=== PATIENT | male | born 1945 | race Caucasian/White ===

== ENCOUNTER 2019-09-30 07:25 | Inpatient (IN) | payer MEDICARE ==
[2019-09-30] MEDS ORDERED: ACETAMINOPHEN TAB 500 MG TAB PO STA (07:32)
[2019-09-30] MEDS ORDERED: IBUPROFEN 600 MG TAB PO STA (07:32)
--- NOTE | 2019-09-30 07:44 | ED ---
General Adult HPI - General Chief complaint: Fever Stated complaint: Fever Time Seen by Provider: 09/30/19 07:25 Source: EMS, RN notes reviewed, old records reviewed Mode of arrival: EMS Limitations: no limitations - History of Present Illness Initial comments: This is a 74-year-old male who presents emergency Department stating he woke up this morning about 6:30 in felt like he had a fever. Patient states he had a dry cough but no sputum production. Patient denied any shortness of breath or difficulty breathing. Patient states he thinks is having a panic attack earlier and when he coughed he was having some chest pain in his ribs bilaterally. Patient denies any nausea vomiting diarrhea. Patient denies any rashes or areas of redness or lesions. Patient denies any dysuria hematuria urinary frequency. Patient denies any headache. Patient denies any lightheadedness or dizziness. Patient states yesterday he felt fine. Patient denies having gotten a flu shot. - Related Data Home Medications Medication Instructions Recorded Confirmed Acetaminophen Tab [Tylenol Tab] 1,000 mg PO Q6HR PRN 09/30/19 09/30/19 Timolol 0.5% Ophth Soln [Timoptic 1 drop BOTH EYES DAILY 09/30/19 09/30/19 0.5% Ophth Soln] Allergies Allergy/AdvReac Type Severity Reaction Status Date / Time No Known Allergies Allergy Verified 09/30/19 08:50 Review of Systems ROS Statement: Those systems with pertinent positive or pertinent negative responses have been documented in the HPI. ROS Other: All systems not noted in ROS Statement are negative. Past Medical History Past Medical History: Eye Disorder History of Any Multi-Drug Resistant Organisms: None Reported Additional Past Surgical History / Comment(s): cataract surgery Past Psychological History: No Psychological Hx Reported Smoking Status: Former smoker Past Alcohol Use History: None Reported Past Drug Use History: None Reported General Exam - General Exam Comments Initial Comments: GENERAL: Patient is well-developed and well-nourished. Patient is nontoxic and well- hydrated and is in mild distress. ENT: Neck is soft and supple. No significant lymphadenopathy is noted. Oropharynx is clear. Moist mucous membranes. Neck has full range of motion without eliciting any pain. EYES: The sclera were anicteric and conjunctiva were pink and moist. Extraocular movements were intact and pupils were equal round and reactive to light. Eyelids were unremarkable. PULMONARY: Unlabored respirations. Good breath sounds bilaterally. No audible rales rhonchi or wheezing was noted. CARDIOVASCULAR: There is a regular rate and rhythm without any murmurs gallops or rubs. ABDOMEN: Soft and nontender with normal bowel sounds. SKIN: Skin is clear with no lesions or rashes and otherwise unremarkable. NEUROLOGIC: Patient is alert and oriented x3. Cranial nerves II through XII are grossly intact. Motor and sensory are also intact. Normal speech, volume and content. Symmetrical smile. MUSCULOSKELETAL: Normal extremities with adequate strength and full range of motion. No lower e xtremity swelling or edema. No calf tenderness. LYMPHATICS: No significant lymphadenopathy is noted PSYCHIATRIC: Normal psychiatric evaluation. Limitations: no limitations Course Vital Signs 09/30/19 09/30/19 07:27 08:00 Temperature 103.1 F H Pulse Rate 102 H 82 Respiratory 21 18 Rate Blood Pressure 144/85 129/72 O2 Sat by Pulse 95 94 L Oximetry Medical Decision Making - Medical Decision Making EKG shows a normal sinus rhythm at 90 bpm OR interval is on a 46 QRS is 90 QT interval 350 QTC is 428 per patient's EKG shows no ST segment elevation or depression or T wave abnormalities are noted. Chest x-ray shows no acute abnormality. Patient has urinary tract infection and so I started the patient on Rocephin. I spoke with Dr. Mantilla and he agreed to admit the patient admitted the patient wrote admitting orders. Patient's troponin was mildly elevated so I repeated the troponin and consult to cardiology - Lab Data Result diagrams: 09/30/19 07:52 09/30/19 07:52 Lab Results 09/30/19 09/30/19 09/30/19 Range/Units 07:52 07:52 07:52 WBC 10.5 (3.8-10.6) k/uL RBC 5.21 (4.30-5.90) m/uL Hgb 15.0 (13.0-17.5) gm/dL Hct 45.1 (39.0-53.0) % MCV 86.5 (80.0-100.0) fL MCH 28.8 (25.0-35.0) pg MCHC 33.3 (31.0-37.0) g/dL RDW 12.5 (11.5-15.5) % Plt Count 148 L (150-450) k/uL Neutrophils % 95 % Lymphocytes % 2 % Monocytes % 1 % Eosinophils % 1 % Basophils % 1 % Neutrophils # 10.0 H (1.3-7.7) k/uL Lymphocytes # 0.2 L (1.0-4.8) k/uL Monocytes # 0.1 (0-1.0) k/uL Eosinophils # 0.1 (0-0.7) k/uL Basophils # 0.1 (0-0.2) k/uL PT (9.0-12.0) sec INR (<1.2) APTT (22.0-30.0) sec Sodium 137 (137-145) mmol/L Potassium 4.1 (3.5-5.1) mmol/L Chloride 106 (98-107) mmol/L Carbon Dioxide 22 (22-30) mmol/L Anion Gap 9 mmol/L BUN 15 (9-20) mg/dL Creatinine 1.01 (0.66-1.25) mg/dL Est GFR (CKD-EPI)AfAm 84 (>60 ml/min/1.73 sqM) Est GFR (CKD-EPI)NonAf 73 (>60 ml/min/1.73 sqM) Glucose 127 H (74-99) mg/dL Plasma Lactic Acid Kurtis 3.0 H* (0.7-2.0) mmol/L Calcium 9.2 (8.4-10.2) mg/dL Total Bilirubin 2.8 H (0.2-1.3) mg/dL AST 34 (17-59) U/L ALT 23 (4-49) U/L Alkaline Phosphatase 82 (38-126) U/L Troponin I (0.000-0.034) ng/mL Total Protein 6.8 (6.3-8.2) g/dL Albumin 3.9 (3.5-5.0) g/dL Urine Color Urine Appearance (Clear) Urine pH (5.0-8.0) Ur Specific Beaver (1.001-1.035) Urine Protein (Negative) Urine Glucose (UA) (Negative) Urine Ketones (Negative) Urine Blood (Negative) Urine Nitrite (Negative) Urine Bilirubin (Negative) Urine Urobilinogen (<2.0) mg/dL Ur Leukocyte Esterase (Negative) Urine RBC (0-5) /hpf Urine WBC (0-5) /hpf Urine WBC Clumps (None) /hpf Ur Squamous Epith Cells (0-4) /hpf Amorphous Sediment (None) /hpf Urine Bacteria (None) /hpf Urine Mucus (None) /hpf Influenza Type A RNA (Not Detectd) Influenza Type B (PCR) (Not Detectd) 09/30/19 09/30/19 09/30/19 Range/Units 07:52 07:52 07:52 WBC (3.8-10.6) k/uL RBC (4.30-5.90) m/uL Hgb (13.0-17.5) gm/dL Hct (39.0-53.0) % MCV (80.0-100.0) fL MCH (25.0-35.0) pg MCHC (31.0-37.0) g/dL RDW (11.5-15.5) % Plt Count (150-450) k/uL Neutrophils % % Lymphocytes % % Monocytes % % Eosinophils % % Basophils % % Neutrophils # (1.3-7.7) k/uL Lymphocytes # (1.0-4.8) k/uL Monocytes # (0-1.0) k/uL Eosinophils # (0-0.7) k/uL Basophils # (0-0.2) k/uL PT 11.1 (9.0-12.0) sec INR 1.1 (<1.2) APTT 23.6 (22.0-30.0) sec Sodium (137-145) mmol/L Potassium (3.5-5.1) mmol/L Chloride (98-107) mmol/L Carbon Dioxide (22-30) mmol/L Anion Gap mmol/L BUN (9-20) mg/dL Creatinine (0.66-1.25) mg/dL Est GFR (CKD-EPI)AfAm (>60 ml/min/1.73 sqM) Est GFR (CKD-EPI)NonAf (>60 ml/min/1.73 sqM) Glucose (74-99) mg/dL Plasma Lactic Acid Kurtis (0.7-2.0) mmol/L Calcium (8.4-10.2) mg/dL Total Bilirubin (0.2-1.3) mg/dL AST (17-59) U/L ALT (4-49) U/L Alkaline Phosphatase (38-126) U/L Troponin I (0.000-0.034) ng/mL Total Protein (6.3-8.2) g/dL Albumin (3.5-5.0) g/dL Urine Color Yellow Urine Appearance Cloudy (Clear) Urine pH 5.0 (5.0-8.0) Ur Specific Beaver 1.013 (1.001-1.035) Urine Protein Trace H (Negative) Urine Glucose (UA) Negative (Negative) Urine Ketones Negative (Negative) Urine Blood Small H (Negative) Urine Nitrite Positive (Negative) Urine Bilirubin Negative (Negative) Urine Urobilinogen <2.0 (<2.0) mg/dL Ur Leukocyte Esterase Large H (Negative) Urine RBC 14 H (0-5) /hpf Urine WBC >182 H (0-5) /hpf Urine WBC Clumps Few H (None) /hpf Ur Squamous Epith Cells <1 (0-4) /hpf Amorphous Sediment Rare H (None) /hpf Urine Bacteria Many H (None) /hpf Urine Mucus Occasional H (None) /hpf Influenza Type A RNA Not Detected (Not Detectd) Influenza Type B (PCR) Not Detected (Not Detectd) 09/30/19 Range/Units 07:52 WBC (3.8-10.6) k/uL RBC (4.30-5.90) m/uL Hgb (13.0-17.5) gm/dL Hct (39.0-53.0) % MCV (80.0-100.0) fL MCH (25.0-35.0) pg MCHC (31.0-37.0) g/dL RDW (11.5-15.5) % Plt Count (150-450) k/uL Neutrophils % % Lymphocytes % % Monocytes % % Eosinophils % % Basophils % % Neutrophils # (1.3-7.7) k/uL Lymphocytes # (1.0-4.8) k/uL Monocytes # (0-1.0) k/uL Eosinophils # (0-0.7) k/uL Basophils # (0-0.2) k/uL PT (9.0-12.0) sec INR (<1.2) APTT (22.0-30.0) sec Sodium (137-145) mmol/L Potassium (3.5-5.1) mmol/L Chloride (98-107) mmol/L Carbon Dioxide (22-30) mmol/L Anion Gap mmol/L BUN (9-20) mg/dL Creatinine (0.66-1.25) mg/dL Est GFR (CKD-EPI)AfAm (>60 ml/min/1.73 sqM) Est GFR (CKD-EPI)NonAf (>60 ml/min/1.73 sqM) Glucose (74-99) mg/dL Plasma Lactic Acid Kurtis (0.7-2.0) mmol/L Calcium (8.4-10.2) mg/dL Total Bilirubin (0.2-1.3) mg/dL AST (17-59) U/L ALT (4-49) U/L Alkaline Phosphatase (38-126) U/L Troponin I 0.054 H* (0.000-0.034) ng/mL Total Protein (6.3-8.2) g/dL Albumin (3.5-5.0) g/dL Urine Color Urine Appearance (Clear) Urine pH (5.0-8.0) Ur Specific Beaver (1.001-1.035) Urine Protein (Negative) Urine Glucose (UA) (Negative) Urine Ketones (Negative) Urine Blood (Negative) Urine Nitrite (Negative) Urine Bilirubin (Negative) Urine Urobilinogen (<2.0) mg/dL Ur Leukocyte Esterase (Negative) Urine RBC (0-5) /hpf Urine WBC (0-5) /hpf Urine WBC Clumps (None) /hpf Ur Squamous Epith Cells (0-4) /hpf Amorphous Sediment (None) /hpf Urine Bacteria (None) /hpf Urine Mucus (None) /hpf Influenza Type A RNA (Not Detectd) Influenza Type B (PCR) (Not Detectd) Disposition Clinical Impression: Urinary tract infection, Sepsis, Chest pain Disposition: ADMITTED IP TO THIS HOSP Referrals: None,Stated [Primary Care Provider] - 1-2 days Time of Disposition: 09:25
[2019-09-30] MEDS: SODIUM CHLORIDE 0.9% 500 ML 500 ML IV SCH (07:57)
[2019-09-30 08:11] LABS: Basophils # (A) 0.1 k/uL (0-0.2); Basophils % (A) 1 %; Eosinophils # (A) 0.1 k/uL (0-0.7); Eosinophils % (A) 1 %; HCT 45.1 % (39.0-53.0); Lymphocytes # (A) 0.2 k/uL (1.0-4.8); Lymphocytes % (A) 2 %; MCH 28.8 pg (25.0-35.0); MCHC 33.3 g/dL (31.0-37.0); MCV 86.5 fL (80.0-100.0); Mean Platelet Volume 6.9; Monocytes # (A) 0.1 k/uL (0-1.0); Monocytes % (A) 1 %; Neutrophils % (A) 95 %; Platelet Count 148 k/uL (150-450); RBC 5.21 m/uL (4.30-5.90); RDW 12.5 % (11.5-15.5); WBC 10.5 k/uL (3.8-10.6)
[2019-09-30 08:14] LABS: Albumin 3.9 g/dL (3.5-5.0); Calcium 9.2 mg/dL (8.4-10.2); Potassium 4.1 mmol/L (3.5-5.1); Total Bilirubin 2.8 mg/dL (0.2-1.3); Total Protein 6.8 g/dL (6.3-8.2)
[2019-09-30 08:15] LABS: Amorphous Sediment,Urine Rare /hpf; Appearance,Urine Cloudy (Clear); Bacteria,Urine Many /hpf; Bilirubin,Urine Negative (Negative); Blood,Urine Small (Negative); Color,Urine Yellow; Glucose,Urine (UA) Negative (Negative); Ketones,Urine Negative (Negative); Leukocyte Esterase,Urine Large (Negative); Mucus,Urine Occasional /hpf; Nitrite,Urine Positive (Negative); Protein,Urine Trace (Negative); RBC,Urine 14 /hpf (0-5); Specific Gravity,Urine 1.013 (1.001-1.035); Squamous Epithelial Cell,Urine <1 /hpf (0-4); Urobilinogen,Urine <2.0 mg/dL (<2.0); WBC,Urine >182 /hpf (0-5)
--- NOTE | 2019-09-30 08:15 | XR ---
EXAMINATION TYPE: XR chest 2V DATE OF EXAM: 09/30/2019 COMPARISON: NONE HISTORY: Shortness of breath TECHNIQUE: Frontal and lateral views of the chest are obtained. FINDINGS: Scattered senescent parenchymal changes noted. Hyperinflation compatible with COPD. No evidence for infiltrate. No evidence for atelectasis. Heart size is stable. Mediastinal structures are stable and grossly unremarkable. No evidence for hilar prominence. Degenerative changes dorsal spine. IMPRESSION: 1. No evidence for acute pulmonary disease.
[2019-09-30 08:31] LABS: INR 1.1 (<1.2); Partial Thromboplastin Time 23.6 sec (22.0-30.0); Prothrombin Time 11.1 sec (9.0-12.0)
[2019-09-30] MEDS ORDERED: cefTRIAXone IN SWFI 1,000 MG/10 ML SYRINGE IVP STA (08:52)
[2019-09-30] MEDS ORDERED: SODIUM CHLORIDE 0.9% 1,000 ML IV ONE (09:25)
[2019-09-30] MEDS ORDERED: ACETAMINOPHEN TAB 325 MG TAB PO PRN (14:35)
[2019-09-30] MEDS ORDERED: LEVOFLOXACIN 500 MG TAB PO SCH (20:00)
--- NOTE | 2019-09-30 20:16 | CONS ---
CONSULTATION CHIEF COMPLAINT: Elevated troponin. HISTORY OF PRESENT ILLNESS: This is a 74-year-old gentleman with no significant past medical history who presented to hospital complaining of fever, chills and not feeling well that started early this morning. He has a dry cough, but does not have any shortness of breath or productive sputum. At the time of my evaluation, he appears comfortable at rest and is free of symptoms. His EKG showed normal sinus rhythm and is within normal limits. Cardiac enzymes came back elevated at 0.054. Hemoglobin is normal at 15 and white cell count is normal. There is no prior history of coronary artery disease or congestive heart failure. SOCIAL HISTORY: Negative for smoking. PAST MEDICAL HISTORY: Significant for glaucoma. MEDICATIONS: Include Timoptic. ALLERGIES: There are no known drug allergies. FAMILY HISTORY: Negative for premature coronary artery disease. REVIEW OF SYSTEMS: HEENT is unremarkable. CARDIAC as described above. RESPIRATORY as described above. GI negative. ENT negative. ALLERGY/IMMUNOLOGY: Negative. SKIN: Negative. MUSCULOSKELETAL: Negative. ENDOCRINE: Negative. DERM: Negative. CONSTITUTIONAL significant for febrile illness. Rest of the system review is not relevant. His UA shows that the leukocyte esterase is positive. White cell count is elevated. Influenza is negative. ASSESSMENT: 1. Elevated troponin probably related to the febrile illness. 2. Urinary tract infection. PLAN: Treat the patient with antibiotics. I will obtain 1 more sets of troponin. Obtain a 2D echo to evaluate his LV function and wall motion. I believe the troponin elevation is related to sepsis. This is not a myocardial infarction. If there is no significant troponin elevation, the patient on discharge will follow up with me and have an outpatient stress test. URSULA / KAREN: [id number] /
--- NOTE | 2019-09-30 22:24 | HP ---
HISTORY AND PHYSICAL CHIEF COMPLAINT: Fever, chills, and chest pain. HISTORY OF PRESENT ILLNESS: This is the first known admission for this 74-year-old white male. He came to emergency room with chills and fever and was found to have urinary tract infection. He was negative for the flu. However, his troponin was elevated. He had no other symptoms including dysuria, hematuria, incontinence, cough, fever, chills, coryza, chest pain, diaphoresis, etc. REVIEW OF SYSTEMS: Otherwise unremarkable. Past medical history, family history, personal and social histories reveal that he has not had a history of diabetes, hypertension, heart disease. Not allergic to any medication. He has he uses eyedrops for glaucoma. He does not smoke. LABORATORY DATA: Laboratory studies demonstrated a positive urinary tract infection on UA, elevated troponin and a lactic acid of 3. PHYSICAL EXAMINATION: Blood pressure is 146/74 with a pulse of 88, respirations of 35, and he is afebrile. At this time, in general he appeared to be slender, well developed, well nourished, no acute distress. Skin color is normal. Skin is warm, dry. Lymph nodes not enlarged. Head, ears, eyes, nose, mouth, and throat were normal. Neck veins are not distended. Thyroid is not enlarged. Chest is clear. Cardiac exam demonstrated normal sinus rhythm and no murmurs or extra sounds. Abdomen is soft and nontender without any visceromegaly or masses. Bowel sounds are present. Extremities are normal. Neurologically was intact. IMPRESSION: 1. Hyperpyrexia. 2. Urinary tract infection. 3. Elevated troponin. 4. Glaucoma. PLAN: 1. Bed rest. 2. IV fluids. 3. Antibiotics. 4. Troponins, repeat troponin. 5. Cardiology consult. MMODL / IJN: [id number] /
--- NOTE | 2019-10-01 12:53 | PN ---
PROGRESS NOTE CHIEF COMPLAINT: Urinary tract infection and sepsis with chest pain and elevated troponin. HISTORY OF PRESENT ILLNESS: This gentleman is doing better and temperature has been down. PHYSICAL EXAMINATION: Chest is clear. Cardiac exam is normal. Abdomen is soft and nontender. IMPRESSION: 1. Urinary tract infection with sepsis. 2. Elevated troponin. PLAN: Continue with IV fluids and IV antibiotics. MMODL / IJN: [id number] /
--- NOTE | 2019-10-01 14:44 | PN ---
PROGRESS NOTE DATE OF SERVICE: 10/01/2019 The lab called back that he had a positive blood culture for E coli, and he will be switched from Levaquin to Zosyn. URSULA / RENAN: [id number] /
--- NOTE | 2019-10-01 16:23 | P.PN ---
Subjective Progress Note Date: 10/01/19 his is a 74-year-old gentleman who was admitted to the hospital with fever or chills. We're asked to see the patient because of abnormal troponin value. Second troponin values showed further elevation of the troponin. Patient was also having some atypical chest pain. Since admission patient is documented to have E. coli bacteremia. Is being treated for sepsis. His troponin value could be related to sepsis. Echocardiogram is not done yet. If echo shows normal LV function. We'll continue to monitor him for any recurrence of symptoms. Patient may need further evaluation by stress test to rule out underlying ischemic heart disease. If echo shows any wall motion abnormalities, we'll may consider further evaluation as an inpatient. Patient seemed much more comfortable today Objective - Vital Signs Vital signs: Vital Signs Temp 97.2 F L 10/01/19 15:20 Pulse 53 L 10/01/19 15:20 Resp 16 10/01/19 15:20 BP 133/79 10/01/19 15:20 Pulse Ox 99 10/01/19 15:20 Intake & Output 09/30/19 10/01/19 10/01/19 18:59 06:59 18:59 Intake Total 240 1060 720 Balance 240 1060 720 Weight 89.811 kg 88.6 kg Intake: Intake, IV Titration 700 Amount Sodium Chloride 0.9% 1, 700 000 ml @ 100 mls/hr IV . Q10H ONE Rx#:[id number] Oral 240 360 720 Other: Voiding Method Urinal Urinal Urinal # Voids 1 1 2 - Exam GENERAL EXAM: Patient is alert and oriented and doesn't appear to be in any acute distress HEENT: Normocephalic. Normal reaction of pupils, equal size, normal range of extraocular motion. No erythema or exudates in the throat. NECK: No masses, no nuchal rigidity. CHEST: No chest wall deformity. LUNGS: Equal air entry with no crackles or wheeze. HEART: S1 and S2 normal with no audible mumurs or gallops. Regular rhythm, femorals equal on both sides.. ABDOMEN: No hepatosplenomegaly, normal bowel sounds, no guarding or rigidity. SKIN: No rashes CENTRAL NERVOUS SYSTEM: No focal deficits. EXTREMITIES: No cyanosis, clubbing or edema. - Labs CBC & Chem 7: 09/30/19 07:52 09/30/19 07:52 Labs: Abnormal Lab Results - Last 24 Hours (Table) 09/30/19 Range/Units 18:09 Troponin I 0.166 H* (0.000-0.034) ng/mL Microbiology - Last 24 Hours (Table) 09/30/19 07:52 Urine Culture - Final Urine,Voided 09/30/19 07:52 Blood Culture Gram Stain - Preliminary Blood Blood Culture - Preliminary Escherichia coli 09/30/19 07:52 Blood Culture - Final Blood Assessment and Plan (1) Chest pain Current Visit: Yes Status: Acute Code(s): R07.9 - CHEST PAIN, UNSPECIFIED SNOMED Code(s): 41471078 (2) Sepsis Current Visit: Yes Status: Acute Code(s): A41.9 - SEPSIS, UNSPECIFIED ORGANISM SNOMED Code(s): 54800424 (3) Urinary tract infection Current Visit: Yes Status: Acute Code(s): N39.0 - URINARY TRACT INFECTION, SITE NOT SPECIFIED SNOMED Code(s): 47616418 (4) Elevated troponin Current Visit: Yes Status: Acute Code(s): R79.89 - OTHER SPECIFIED ABNORMAL FINDINGS OF BLOOD CHEMISTRY SNOMED Code(s): 187677972 Plan: Continue current medical therapy. Patient to have echocardiogram. If echo shows normal LV function, patient could be considered for outpatient evaluation to rule out underlying ischemic heart disease. If anyone most abnormal areas are noted, may consider inpatient evaluation. Meanwhile continue treatment for sepsis and UTI
[2019-10-01] MEDS: PIPERACILLIN-TAZOBACTAM 3.375 GM in SODIUM CHLORIDE 0.9% 100 ML IVPB SCH ×2 (16:56→23:51)
--- NOTE | 2019-10-02 08:38 | ECHOF ---
Referral Reason:Chest pain and cardiomyopathy MEASUREMENTS -------- HEIGHT: 180.3 cm WEIGHT: 88.5 kg BP: RVIDd: 3.7 cm (< 3.3) IVSd: 1.5 cm (0.6 - 1.1) LVIDd: 2.7 cm (3.9 - 5.3) LVPWd: 1.7 cm (0.6 - 1.1) IVSs: 1.8 cm LVIDs: 2.0 cm LVPWs: 1.9 cm LAESV Index (A-L): 37.64 ml/m Ao Diam: 3.5 cm (2.0 - 3.7) AV Cusp: 1.9 cm (1.5 - 2.6) MV E Marquez: 0.94 m/s MV DecT: 360 ms MV A Marquez: 0.94 m/s MV E/A Ratio: 1.01 RAP: 5.00 mmHg RVSP: 36.48 mmHg FINDINGS -------- Sinus rhythm. This was a technically adequate study. The left ventricular size is normal. There is moderate concentric left ventricular hypertrophy. O verall left ventricular systolic function is normal with, an EF between 55 - 60 %. Mitral Doppler i nflow pattern suggests diastolic filling abnormality 11.85. The right ventricle is mild to moderately enlarged. LA is moderately dilated 34-39 ml/m2 The right atrium is mildly enlarged. Interatrial and interventricular septum intact. The aortic valve is trileaflet and appears structurally normal. Trace amount of aortic regurgitatio n. There is no evidence of aortic stenosis. [id number] mitral regurgitation is present. Mild tricuspid regurgitation present. There is mild pulmonary hypertension. The right ventricular systolic pressure, as measured by Doppler, is 36.48mmHg. Trace/mild (physiologic) pulmonic regurgitation. The aortic root size is normal. The inferior vena cava is mildly dilated. There is no pericardial effusion. CONCLUSIONS -------- 1. Sinus rhythm. 2. This was a technically adequate study. 3. The left ventricular size is normal. 4. There is moderate concentric left ventricular hypertrophy. 5. Overall left ventricular systolic function is normal with, an EF between 55 - 60 %. 6. Mitral Doppler inflow pattern suggest diastolic filling abnormality 11.85. 7. The right ventricle is mild to moderately enlarged. 8. LA is moderately dilated 34-39 ml/m2 9. The right atrium is mildly enlarged. 10. Interatrial and interventricular septum intact. 11. The aortic valve is trileaflet and appears structurally normal. 12. Trace amount of aortic regurgitation. 13. There is no evidence of aortic stenosis. 14. [id number] mitral regurgitation is present. 15. Mild tricuspid regurgitation present. 16. There is mild pulmonary hypertension. 17. The right ventricular systolic pressure, as measured by Doppler, is 36.48mmHg. 18. Trace/mild (physiologic) pulmonic regurgitation. 19. The aortic root size is normal. 20. The inferior vena cava is mildly dilated. 21. There is no pericardial effusion. AUDIOVISUAL PRODUCTION SPECIALIST: Kizzy Hall RDCS
[2019-10-02] MEDS: PIPERACILLIN-TAZOBACTAM 3.375 GM in SODIUM CHLORIDE 0.9% 100 ML IVPB SCH ×2 (10:04→17:09)
--- NOTE | 2019-10-02 23:40 | PN ---
PROGRESS NOTE CHIEF COMPLAINT: Sepsis, urinary tract infection and chest pain with elevated troponin. HISTORY OF PRESENT ILLNESS: This gentleman is feeling well and doing well. His temperature has been down and he is on antibiotics. He has been seen by Cardiology and an echocardiogram has been ordered. He is having no chest pain, shortness of breath, etc. PHYSICAL EXAMINATION: Color is good. Chest is clear. Cardiac exam is normal. Abdomen is soft, nontender. IMPRESSION: 1. Septicemia. 2. Urinary tract infection. 3. Elevated troponin. PLAN: Continue with IV fluids and antibiotics and await the rest of his cardiac studies. MMODL / IJN: [id number] /
[2019-10-03] MEDS: PIPERACILLIN-TAZOBACTAM 3.375 GM in SODIUM CHLORIDE 0.9% 100 ML IVPB SCH ×2 (01:02→09:02)
[2019-10-03] MEDS ORDERED: TIMOLOL 0.5% OPHTH DROPS 5 ML BTL BOTH EYES SCH (09:00)
[2019-10-03 09:45] VITALS: RESP 20; TEMP 97.6
[2019-10-03] MEDS ORDERED: LEVOFLOXACIN 500 MG TAB PO SCH (13:00)
[2019-10-03 13:17] VITALS: BP 140/83; PULSE 48
--- NOTE | 2019-10-04 05:27 | DS ---
DISCHARGE SUMMARY CHIEF COMPLAINT: Fever, urinary tract infection and elevated troponin. HISTORY OF PRESENT ILLNESS AND PHYSICAL EXAM: Details of this man's history and physical can be found in the initial workup. LABORATORY STUDIES: While he was in the hospital he has laboratory studies, details which can be found in the laboratory section of his chart. COURSE IN THE HOSPITAL: After admission, he was placed on bedrest, started on intravenous fluids and IV antibiotics. He was seen by Cardiology. No intervention was felt necessary as they felt he could be discharged on and he will go home on his usual activity, diet, medications, and he will be sent home on Levaquin 500 mg once a today. He will follow up with us or his own personal physician and also Cardiology. FINAL DIAGNOSES: 1. Septicemia. 2. Urinary tract infection. 3. Elevated troponin. OPERATIONS: None. CONSULTATION: Cardiology. He is improved. URSULA / KAREN: [id number] /
== END 2019-10-03 14:20 | disposition home or self-care (01) | DRG 872 ==
LOC: EC 07:25 → 3SCARD 09:25
PROVIDERS: ADMIT Family Medicine; ATTEND Family Medicine
DX: A41.51 Sepsis due to Escherichia coli [E. coli] (principal); N39.0 Urinary tract infection, site not specified; E87.2 Acidosis; F41.0 Panic disorder [episodic paroxysmal anxiety]; H40.9 Unspecified glaucoma; Z87.891 Personal history of nicotine dependence; R79.89 Other specified abnormal findings of blood chemistry; Z98.49 Cataract extraction status, unspecified eye
CPT/HCPCS: 36415; 71046; 80053; 81001; 83605; 84484; 85025; 85610; 85730; 87040; 87077; 87086; 87186; 87502; 93005; 93306; 96361; 96374; 99285

== ENCOUNTER 2020-12-15 08:40 | Day surgery (SDC) | payer MEDICARE ==
[2020-12-12 15:45] VITALS: BMI 27.4
[~2020-12-15 08:40] MED LIST: ACETAMINOPHEN TAB 500 MG TAB PO PRN; DEXAMETHASONE SOD PHOSPHATE 4 MG/ML 1 ML VIAL IV ONE; HEPARIN SODIUM,PORCINE/PF 5,000 UNIT/0.5 ML SYRINGE SQ PRN; HYDROmorphone 0.5 MG/0.5 ML SYRINGE IVP PRN; LACTATED RINGERS 1,000 ML IV SCH; MIDAZOLAM 2 MG/2 ML VIAL IV PRN; ONDANSETRON 4 MG/2 ML VIAL IVP ONE
[2020-12-15] MEDS ORDERED: LIDOCAINE 1% INJ 10MG/ML (20 ML MDV) ONE (10:32)
[2020-12-15] MEDS ORDERED: NEOSTIGMINE 1 MG/ML 10 ML VIAL ONE (10:32)
[2020-12-15] MEDS ORDERED: PROPOFOL 10 MG/ML 20 ML VIAL IV ONE (10:32)
[2020-12-15] MEDS ORDERED: ROCURONIUM 10 MG/ML (5 ML VIAL) IV ONE (10:32)
[2020-12-15] MEDS ORDERED: ePHEDrine SULFATE/0.9% NACL/PF 50 MG/5 ML SYRINGE IV ONE (10:32)
[2020-12-15] MEDS ORDERED: SUCCINYLCHOLINE CHLORIDE 100 MG/5 ML SYR IV ONE (10:32)
[2020-12-15] MEDS ORDERED: GLYCOPYRROLATE 0.2 MG/ML 2 ML VIAL ONE (10:32)
[2020-12-15] MEDS ORDERED: fentaNYL (PF) 50 MCG/ML 2 ML AMP ONE (10:32)
[2020-12-15] MEDS ORDERED: MIDAZOLAM 2 MG/2 ML VIAL ONE (10:32)
[2020-12-15] MEDS ORDERED: BUPIVACAINE (PF) 0.25% 30 ML VIAL SQ ONE ×2 (10:41→12:08)
[2020-12-15] MEDS ORDERED: LACTATED RINGERS 1,000 ML IV ONE (12:10)
[2020-12-15 12:27] VITALS: RESP 16; TEMP 97.3
--- NOTE | 2020-12-15 12:34 | P.OP ---
Date of Procedure: 12/15/20 Procedure(s) Performed: PREOPERATIVE DIAGNOSIS: Large incarcerated right scrotal/inguinal hernia POSTOPERATIVE DIAGNOSIS: Same PROCEDURE: Incarcerated right inguinal hernia repair with mesh SURGEON: Nella EBL: Minimal ANESTHESIA: General COMPLICATIONS: None OPERATIVE PROCEDURE: Patient was placed in the operating table in the supine position and placed under general anesthesia. An oblique incision was made in the right groin. Dissection down through the subcutaneous tissues took place using electrocautery. The external oblique fascia was incised using a scalpel. This opening was lengthened using the Metzenbaum scissors. The spermatic cord was encircled with a Jean Pierre drain. The structures were identified and preserved. Careful dissection revealed an very large indirect hernia sac. This was carefully dissected back to the internal inguinal ring where it was ligated using 3 separate 0 silk stick tie sutures. A 3" x 6" ultra Pro Prolene mesh was cut to fit on the exposed fascia. This was sutured to the pubic tubercle the folding edge of the inguinal ligament and the conjoined tendon using 2-0 Nurolon sutures. A slit was created in the mesh and the mesh was wrapped around the spermatic cord and sutured back to itself. The external oblique was then reapproximated using a running 2-0 Vicryl suture. The subcutaneous tissues were reapproximated using a 3-0 Vicryl sutures. The skin was closed using 4-0 Monocryl sutures. Skin glue and sterile dressings were then applied. DISPOSITION: Stable to recovery room
[2020-12-15] MEDS ORDERED: ACETAMINOPHEN TAB 500 MG TAB PO ONE (13:23)
[2020-12-15] MEDS ORDERED: ACETAMINOPHEN TAB 500 MG TAB ONE (13:23)
[2020-12-15 13:26] VITALS: PULSE 59
[2020-12-15 13:56] VITALS: BP 142/79
[2020-12-15] MEDS ORDERED: IBUPROFEN 600 MG TAB PO SCH (15:30)
[2020-12-15] MEDS ORDERED: ACETAMINOPHEN TAB 325 MG TAB PO SCH (18:00)
== END 2020-12-15 15:13 | disposition home or self-care (01) ==
LOC: OR 08:40
PROVIDERS: ATTEND Surgery
DX: K40.30 Unilateral inguinal hernia, with obstruction, without gangrene, not specified as recurrent (principal); I10 Essential (primary) hypertension; E78.5 Hyperlipidemia, unspecified; H40.9 Unspecified glaucoma; Z20.822 Contact with and (suspected) exposure to COVID-19; Z98.49 Cataract extraction status, unspecified eye; Z87.891 Personal history of nicotine dependence; Z97.2 Presence of dental prosthetic device (complete) (partial); Z79.899 Other long term (current) drug therapy
CPT/HCPCS: 49507; 88302; 87635; C1781; J2250; J1100; J2710; J0690; J2405; J2001; J3010; J0330; J2704; J1644

== ENCOUNTER 2021-11-26 11:55 | Day surgery (SDC) | payer MEDICARE ==
[2021-11-22 15:49] VITALS: BMI 26.9
--- NOTE | 2021-11-26 11:41 | P.GSHP ---
History of Present Illness H&P Date: 11/26/21 Chief Complaint: Posterior neck cyst 76-year-old male here today for excision posterior neck cyst. Patient has had complaints of an enlarging mass there for some time. Mild pain at times. No drainage. No antibiotics. Past Medical History Past Medical History: Cancer, Eye Disorder, Hyperlipidemia, Hypertension Additional Past Medical History / Comment(s): Bilateral glaucoma, skin cancer History of Any Multi-Drug Resistant Organisms: None Reported Past Surgical History: Hernia Repair Additional Past Surgical History / Comment(s): Bilateral cataract removals/lens implants, right inguinal hernia repair November 2020 Past Anesthesia/Blood Transfusion Reactions: No Reported Reaction Additional Past Anesthesia/Blood Transfusion Reaction / Comment(s): Pt has never had general/spinal anesthesia. Smoking Status: Former smoker - Past Family History Father Additional Family Medical History / Comment(s): Ruptured hernia Mother Family Medical History: CVA/TIA Additional Family Medical History / Comment(s): "Heart problems" Medications and Allergies Home Medications Medication Instructions Recorded Confirmed Type Timolol 0.5% Ophth Soln [Timoptic 1 drop BOTH EYES DAILY 09/30/19 11/22/21 History 0.5% Ophth Soln] Pravastatin Sodium 80 mg PO HS 12/12/20 11/22/21 History amLODIPine [Norvasc] 5 mg PO HS 12/12/20 11/22/21 History Ergocalciferol [Vitamin D2 (1250 1,250 mcg PO Q30D 11/22/21 11/22/21 History Mcg = 74971 Iu)] Allergies Allergy/AdvReac Type Severity Reaction Status Date / Time No Known Allergies Allergy Verified 11/22/21 15:44 Surgical - Exam Physical exam: General: Well-developed, well-nourished HEENT: Normocephalic, sclerae nonicteric, posterior neck cystic lesion 4 cm Abdomen: Nontender, nondistended Extremities: No edema Neuro: Alert and oriented Assessment and Plan (1) Cyst of neck Narrative/Plan: 76-year-old male with symptomatic posterior neck cyst. We'll proceed with surgical excision. Risks of bleeding, infection, scarring, recurrence reviewed. He understands and wishes to proceed. Status: Acute Code(s): [id number] - SNOMED Code(s): 381881826
[~2021-11-26 11:55] MED LIST changes: +Pre Op ABX Message 1 EACH MISC MISCELLANE ONE
[2021-11-26 12:25] VITALS: TEMP 98.8
[2021-11-26] MEDS ORDERED: LIDOCAINE 1% (10MG/ML) FOR IV START INTRADERMA ONE (12:43)
[2021-11-26] MEDS ORDERED: PROPOFOL 10 MG/ML 20 ML VIAL IV ONE (13:40)
[2021-11-26] MEDS ORDERED: KETAMINE 10 MG/ML 20 ML VIAL ONE (13:40)
[2021-11-26] MEDS ORDERED: fentaNYL (PF) 50 MCG/ML 2 ML AMP ONE (13:40)
[2021-11-26] MEDS ORDERED: MIDAZOLAM 2 MG/2 ML VIAL ONE (13:40)
[2021-11-26] MEDS ORDERED: SODIUM CHLORIDE 0.9% 100 ML with ceFAZolin 2,000 MG IV ONE ×2 (13:58)
[2021-11-26] MEDS ORDERED: BUPIVACAIN-EPI 0.25%-1:200,000 30 ML VIAL SQ ONE ×2 (14:00)
[2021-11-26] MEDS ORDERED: NALOXONE 0.4 MG/ML 1 ML VIAL IV PRN (14:25)
--- NOTE | 2021-11-26 14:27 | P.OP ---
Date of Procedure: 11/26/21 Procedure(s) Performed: PREOPERATIVE DIAGNOSIS: Posterior neck sebaceous cyst POSTOPERATIVE DIAGNOSIS: Same PROCEDURE: Excision posterior neck sebaceous cyst, intermediate closure SURGEON: Nella EBL: 5 mL ANESTHESIA: Sedation and local COMPLICATIONS: None OPERATIVE PROCEDURE: Patient placed in the left decubitus position. The posterior neck was prepped and draped sterilely. Skin localized with lidocaine. Elliptical incision made overlying the palpable cyst. Subcutaneous tissues divided using sharp dissection. Cyst easily excised fully. The cyst measured 3.2 cm in diameter. Operative site was inspected. No bleeding seen. Subcutaneous tissues closed using interrupted 3-0 Vicryl sutures. Skin closed using running 4-0 Monocryl suture. Skin glue and sterile dressings applied. DISPOSITION: Stable to recovery room
[2021-11-26 15:03] VITALS: BP 134/86; PULSE 65; RESP 16
== END 2021-11-26 15:37 | disposition home or self-care (01) ==
LOC: OR 11:55
PROVIDERS: ATTEND Surgery
DX: L72.3 Sebaceous cyst (principal); I10 Essential (primary) hypertension; E78.5 Hyperlipidemia, unspecified; Z87.891 Personal history of nicotine dependence
CPT/HCPCS: 11424; 12042; J2250; J1100; J2405; J0690; J3010; J2704; 88304

== ENCOUNTER 2024-04-12 05:57 | Day surgery (SDC) | payer MEDICARE ==
[~2024-04-12 05:57] MED LIST changes: -DEXAMETHASONE SOD PHOSPHATE 4 MG/ML 1 ML VIAL IV ONE; +HEPARIN SODIUM,PORCINE 5,000 UNIT/ML 1 ML VIAL SQ PRN; -HEPARIN SODIUM,PORCINE/PF 5,000 UNIT/0.5 ML SYRINGE SQ PRN; -HYDROmorphone 0.5 MG/0.5 ML SYRINGE IVP PRN; -LACTATED RINGERS 1,000 ML IV SCH; -MIDAZOLAM 2 MG/2 ML VIAL IV PRN; -ONDANSETRON 4 MG/2 ML VIAL IVP ONE; -Pre Op ABX Message 1 EACH MISC MISCELLANE ONE
[2024-04-12] MEDS: LACTATED RINGERS 1,000 ML IV ONE ×3 (07:21→09:40)
[2024-04-12] MEDS: ACETAMINOPHEN TAB 500 MG TAB PO ONE (07:35)
[2024-04-12] MEDS: TAMSULOSIN 0.4 MG CAP.ER.24H PO ONE (07:35)
[2024-04-12] MEDS: HEPARIN SODIUM,PORCINE 5,000 UNIT/ML 1 ML VIAL SQ ONE (07:36)
[2024-04-12] MEDS ORDERED: LIDOCAINE 1% INJ 10MG/ML (20 ML MDV) ONE (07:41)
[2024-04-12] MEDS ORDERED: WATER FOR INJECTION, STERILE 10 ML VIAL IV ONE (07:41)
[2024-04-12] MEDS ORDERED: GLYCOPYRROLATE 0.2 MG/ML 2 ML VIAL ONE (07:41)
[2024-04-12] MEDS ORDERED: NEOSTIGMINE 1 MG/ML 10 ML VIAL ONE (07:41)
[2024-04-12] MEDS ORDERED: fentaNYL (PF) 50 MCG/ML 2 ML AMP ONE (07:41)
[2024-04-12] MEDS ORDERED: KETOROLAC 15 MG/ML 1 ML VIAL ONE (07:41)
[2024-04-12] MEDS ORDERED: PROPOFOL 10 MG/ML 20 ML VIAL IV ONE (07:41)
[2024-04-12] MEDS ORDERED: DEXAMETHASONE SOD PHOSPHATE 4 MG/ML 1 ML VIAL ONE (07:41)
[2024-04-12] MEDS ORDERED: SUCCINYLCHOLINE CHLORIDE 200 MG/10 ML VIAL IV ONE (07:41)
[2024-04-12] MEDS ORDERED: ONDANSETRON 4 MG/2 ML VIAL ONE (07:41)
[2024-04-12] MEDS ORDERED: ROCURONIUM 10 MG/ML (5 ML VIAL) IV ONE (07:41)
[2024-04-12] MEDS ORDERED: ePHEDrine 50 MG/ML 1 ML VIAL ONE (07:41)
[2024-04-12 10:11] VITALS: TEMP 97.4
[2024-04-12] MEDS ORDERED: HYDROmorphone 0.5 MG/0.5 ML SYRINGE IVP PRN (10:13)
[2024-04-12] MEDS ORDERED: LACTATED RINGERS 1,000 ML IV SCH (10:13)
[2024-04-12] MEDS ORDERED: LIDOCAINE 1% (10MG/ML) FOR IV START INTRADERMA PRN (10:13)
[2024-04-12] MEDS ORDERED: ONDANSETRON 4 MG/2 ML VIAL IVP ONE (10:13)
[2024-04-12] MEDS ORDERED: DEXAMETHASONE SOD PHOSPHATE 4 MG/ML 1 ML VIAL IV ONE (10:13)
[2024-04-12] MEDS ORDERED: METOCLOPRAMIDE 5 MG/ML 2 ML VIAL IVP PRN (10:13)
--- NOTE | 2024-04-12 10:25 | P.OP ---
Date of Procedure: 04/12/24 Procedure(s) Performed: PREOPERATIVE DIAGNOSIS: Recurrent incarcerated right inguinal hernia POSTOPERATIVE DIAGNOSIS: Same PROCEDURE: Open repair of recurrent incarcerated right inguinal hernia with mesh, right orchiectomy SURGEON: Dr. Carmen ANESTHESIA: General OPERATIVE PROCEDURE DETAILS: Patient was placed in the operating table in the supine position and placed under general anesthesia. An oblique incision was made in the right groin through the prior incision scar. Dissection down through the subcutaneous tissues took place using electrocautery. The external oblique fascia was incised using a scalpel. This opening was lengthened using the Metzenbaum scissors. The patient had an extremely large incarcerated hernia. I was able to carefully dissect the spermatic cord structures and the large hernia out of the scrotal space and this was brought up to the operative field. I was unable to dissect the testicular vessels away from the large hernia sac. The hernia sac was opened. This contained the cecum along with approximately 10 cm of small bowel. The bowel was loosely adherent to the hernia sac. This was able to be lysed in reduced back into the peritoneal cavity. The testicular vasculature was followed to the internal inguinal ring where it was ligated using 0 silk stick tie sutures. The hernia sac was quite large. In order to keep the bowel contents away from the internal inguinal ring I folded a portion of Gelfoam and placed this into the peritoneal cavity. This effectively kept the bowel away from our planned hernia sac closure site. The hernia sac was then closed using several #2 Ethibond stick tie sutures. The excess sac was excised. Both testicle and sac were sent to pathology. The area was inspected for bleeding none was seen. A 3 inch x 6 inch Prolene mesh was cut to fit on the exposed fascia. This was sutured to the pubic tubercle the folding edge of the inguinal ligament and the residual mesh from the previous repair. The external oblique was then reapproximated using a running 2-0 Vicryl suture. The subcutaneous tissues were reapproximated using a 3-0 Vicryl sutures. The skin was closed using 4-0 Monocryl sutures. Skin glue and sterile dressings were then applied. TYPE OF MESH USED: Flat Prolene LOCATION OF MESH: [place] FIXATION: 0 Vicryl PREOPERATIVE DISCUSSION ON SMOKING CESSASTION: Yes PREOPERATIVE DISCUSSION ON MORBID OBESITY: Yes PREOPERATIVE DISCUSSION ON APPROPRIATE USE OF NARCOTIC USE: Yes PREOPERATIVE EDUCATION: Multi Modal, Smoking Cessation and Weight Loss with BMI over 35. DISPOSITION: Stable to recovery room
[2024-04-12 11:03] VITALS: RESP 16
[2024-04-12] MEDS ORDERED: ACETAMINOPHEN TAB 325 MG TAB PO SCH (12:00)
[2024-04-12 12:19] VITALS: BP 151/83; PULSE 60
[2024-04-12] MEDS ORDERED: IBUPROFEN 600 MG TAB PO SCH (13:00)
== END 2024-04-12 12:35 | disposition home or self-care (01) ==
LOC: OR 05:57
PROVIDERS: ATTEND Surgery
DX: K40.31 Unilateral inguinal hernia, with obstruction, without gangrene, recurrent
CPT/HCPCS: 88302

== ENCOUNTER → 2024-06-08 | Outpatient (CLI) | payer MEDICARE ==
[2024-06-08 15:57] LABS: HCT 40.9 % (39.6-50.0); HGB 13.6 g/dL (13.0-17.0); MCH 29.5 pg (27.0-32.0); MCHC 33.3 g/dL (32.0-37.0); MCV 88.7 FL (80.0-97.0); Mean Platelet Volume 9.4 FL (9.5-12.2); NRBC Per 100 WBC 0 X 10*3/uL (0.00-0.01); Platelet Count 246 X 10*3/uL (140-440); RBC 4.61 X 10*6/uL (4.40-5.60); RDW 12.1 % (11.5-14.5); WBC 7.32 X 10*3/uL (4.50-10.00)
[2024-06-08 15:58] LABS: Basophils # (A) 0.03 X 10*3/uL (0.00-0.10); Basophils % (A) 0.4 %; Eosinophils # (A) 0.39 X 10*3/uL (0.04-0.35); Eosinophils % (A) 5.3 %; Lymphocytes # (A) 1.22 X 10*3/uL (0.90-5.00); Lymphocytes % (A) 16.7 %; Monocytes # (A) 0.71 X 10*3/uL (0.20-1.00); Monocytes % (A) 9.7 %; Neutrophils # (A) 4.95 X 10*3/uL (1.80-7.70); Neutrophils % (A) 67.6 %
[2024-06-08 17:27] LABS: BUN/Creat Ratio 14.89 Ratio (12.00-20.00); Blood Urea Nitrogen 13.4 mg/dL (9.0-27.0); Calcium 9.4 mg/dL (8.7-10.3); Carbon Dioxide 24.8 mmol/L (21.6-31.8); Chloride 103 mmol/L (96-109); Glucose 95 mg/dL (70-110); Potassium 4.8 mmol/L (3.5-5.5); Sodium 138 mmol/L (135-145)
== END | disposition home or self-care (01) ==
LOC: LABPAT 12:22
PROVIDERS: ATTEND Urology
DX: N43.3 Hydrocele, unspecified (principal)
CPT/HCPCS: 36415; 80048; 85025

== ENCOUNTER 2024-06-15 06:59 | Day surgery (SDC) | payer MEDICARE ==
[2024-06-15] MEDS ORDERED: droPERidol 5 MG/2 ML VIAL IVP ONE (07:25)
[2024-06-15] MEDS ORDERED: HYDROmorphone 0.5 MG/0.5 ML SYRINGE IVP PRN (07:25)
[2024-06-15] MEDS ORDERED: LIDOCAINE 1% (10MG/ML) FOR IV START INTRADERMA PRN (07:25)
[2024-06-15] MEDS: DEXAMETHASONE SOD PHOSPHATE 4 MG/ML 1 ML VIAL IV ONE (08:18)
[2024-06-15] MEDS: ONDANSETRON 4 MG/2 ML VIAL IVP ONE (08:18)
[2024-06-15] MEDS: LACTATED RINGERS 1,000 ML IV SCH (08:18)
[2024-06-15] MEDS: IV FLUID CONTINUATION 1,000 ML IV ONE (08:19)
--- NOTE | 2024-06-15 08:30 | P.HPIHPCON ---
History of Present Illness H&P Date: 06/15/24 Chief Complaint: Right hydrocele This is an 79-year-old male with history of right inguinal hernia status open inguinal hernia repair by Dr. Carmen, Case did require a right orchiectomy. Postoperatively patient has developed right hydrocele versus a hematocele, it persistent without improvement from more than 2 months postoperatively. He is symptomatic from it. Discussed with him the option of a right hydrocelectomy, discussed risk of bleeding, infection, recurrence. On exam I do not appreciate any bowel along the inguinal canal that was more consistent with a hydrocele, he was also evaluated by Dr. Carmen. He understood all the risk and agreed to proceed Consent for Procedure: I have explained the operation/procedure to the patient, including the risks, benefits, side effects, alternative therapies (including not receiving the proposed treatment or service), the likelihood of the patient achieving his/her goals, and potential recuperation problems for the procedure/sedation/analgesia, as well as any blood products, if indicated. I also explained to the patient the risks, benefits and side effects of the alternatives, as well as the risks related to not receiving the proposed procedure, care, treatment, or services. Past Medical History Past Medical History: Cancer, Eye Disorder, Hyperlipidemia, Hypertension Additional Past Medical History / Comment(s): Bilateral glaucoma, skin cancer- basal cell. removed. hydrocele rt. History of Any Multi-Drug Resistant Organisms: None Reported Past Surgical History: Hernia Repair Additional Past Surgical History / Comment(s): Bilateral cataract removals/lens implants, right inguinal hernia repair November 2020,2023, Past Anesthesia/Blood Transfusion Reactions: No Reported Reaction Additional Past Anesthesia/Blood Transfusion Reaction / Comment(s): Pt has never had general/spinal anesthesia. Smoking Status: Former smoker - Past Family History Father Additional Family Medical History / Comment(s): Ruptured hernia Mother Family Medical History: CVA/TIA Additional Family Medical History / Comment(s): "Heart problems" Medications and Allergies Home Medications Medication Instructions Recorded Confirmed Type Timolol 0.5% Ophth Soln [Timoptic 1 drop BOTH EYES DAILY 09/30/19 06/15/24 History 0.5% Ophth Soln] Pravastatin Sodium 80 mg PO HS 12/12/20 06/15/24 History amLODIPine [Norvasc] 5 mg PO HS 12/12/20 06/15/24 History Acetaminophen [Tylenol Extra 500 mg PO DIRECTED PRN 06/11/24 06/11/24 History Strength] Cholecalciferol [Vitamin D3 (25 100 mcg PO DAILY 06/11/24 06/15/24 History Mcg = 1000 Iu)] Allergies Allergy/AdvReac Type Severity Reaction Status Date / Time No Known Allergies Allergy Verified 06/15/24 08:13 Surgical - Exam Vital Signs Temp Pulse Resp BP Pulse Ox 97.3 F L 61 17 165/79 97 06/15/24 08:20 06/15/24 08:20 06/15/24 08:20 06/15/24 08:20 06/15/24 08:20 - General no distress, no pain - Eyes normal ocular movement, no pale - ENT normal nares, normal mucosa - Respiratory normal expansion, normal respiratory effort - Abdomen Abdomen: soft, non tender - Psychiatric oriented to time, oriented to person, oriented to place Assessment and Plan Assessment: OR for right-sided hydrocelectomy
[2024-06-15] MEDS ORDERED: ePHEDrine 50 MG/ML 1 ML VIAL ONE (08:52)
[2024-06-15] MEDS ORDERED: PROPOFOL 10 MG/ML 20 ML VIAL IV ONE (08:52)
[2024-06-15] MEDS ORDERED: LIDOCAINE 1% INJ 10MG/ML (20 ML MDV) ONE (08:52)
[2024-06-15] MEDS ORDERED: fentaNYL (PF) 50 MCG/ML 2 ML AMP ONE (08:52)
[2024-06-15] MEDS ORDERED: GLYCOPYRROLATE 0.2 MG/ML 2 ML VIAL ONE (08:52)
[2024-06-15] MEDS: BUPIVACAINE (PF) 0.25% 30 ML VIAL SQ ONE (10:11)
--- NOTE | 2024-06-15 10:24 | P.OP ---
Date of Procedure: 06/15/24 Preoperative Diagnosis: Right hydrocele/hematocele Postoperative Diagnosis: Same Procedure(s) Performed: Right hydrocelectomy, evacuation of scrotal hematoma Implants: none Anesthesia: DANNIELLEA Surgeon: Zeeshan Bellamy Estimated Blood Loss (ml): 25 Pathology: other (Right hydrocele/hematocele sac) Condition: stable Disposition: PACU Indications for Procedure: This is an 79-year-old male with history of right inguinal hernia status open inguinal hernia repair by Dr. Carmen, Case did require a right orchiectomy. Postoperatively patient has developed right hydrocele versus a hematocele, it persistent without improvement from more than 2 months postoperatively. He is symptomatic from it. Discussed with him the option of a right hydrocelectomy, discussed risk of bleeding, infection, recurrence. On exam I do not appreciate any bowel along the inguinal canal that was more consistent with a hydrocele, he was also evaluated by Dr. Carmen. He understood all the risk and agreed to proceed Description of Procedure: Patient brought to the operating room, general anesthesia was induced. He was prepped and draped in sterile fashion placed in a supine position. Next a incision was made along the right hemiscrotum. Next dartos fascia was dissected down using electrocautery. At this point a thickened hydrocele sac was encountered, I attempted to dissect the hydrocele sac off of the dartos but it was completely adherent and there was no plane, at this point an incision was made in the hydrocele sac, and fluid was irrigated out, greater than a liter of fluid was encountered with the hydrocele sac. Of note the fluid color was consistent with old blood, and additionally there was multiple old blood clots that were also removed within the scrotal sac. At this point I slowly dissected the hydrocele/hematocele sac off of the dartos, I was unable to completely resected given how adherent it was but the bulk of it was resected down, the edges of it was cauterized. At this point there was no evidence of bleeding, I did place some Surgicel in the scrotal cavity. Next a counterincision was made at the most dependent portion of the scrotum and a [place] drain was placed and secured with 2-0 silk. The dartos was closed using 2-0 Vicryl, skin was closed using 4-0 Monocryl, skin glue was applied to the incision. Patient tolerated procedure was taken to recovery in stable condition
[2024-06-15 10:33] VITALS: TEMP 96.8
[2024-06-15 11:13] VITALS: RESP 16
[2024-06-15 11:41] VITALS: BP 136/75; PULSE 67
== END 2024-06-15 12:28 | disposition home or self-care (01) ==
LOC: OR 06:59
PROVIDERS: ATTEND Urology
DX: N43.3 Hydrocele, unspecified (principal); N50.1 Vascular disorders of male genital organs; I10 Essential (primary) hypertension; E78.5 Hyperlipidemia, unspecified; Z79.899 Other long term (current) drug therapy; Z87.891 Personal history of nicotine dependence
CPT/HCPCS: 88302; 55040; 54700; J1100; J0690; J2405; J2003; J3010; J2704; J0665; J1596